=== PATIENT | male | born 1965 | race Two or more races ===

== ENCOUNTER 2021-03-12 10:15 | Outpatient (REF) | payer OTHER, SELFPAY ==
[2021-03-12 10:45] LABS: Binax Internal Control QC Valid; Binax Lot number: 9864; Binax Now Covid-19 Ag Positive (Negative)
== END 2021-03-12 10:16 | disposition home or self-care (01) ==
LOC: HO.LAB 10:15
PROVIDERS: Visit Provider Internal Medicine
DX: Z20.822 Contact with and (suspected) exposure to COVID-19 (principal)
CPT/HCPCS: C9803

== ENCOUNTER 2021-03-19 11:25 | Outpatient (REF) | payer OTHER, SELFPAY ==
[2021-03-19 11:47] LABS: Binax Internal Control QC Valid; Binax Now Covid-19 Ag Negative (Negative)
== END 2021-03-19 11:26 | disposition home or self-care (01) ==
LOC: HO.LAB 11:25
PROVIDERS: Visit Provider Internal Medicine
DX: Z20.822 Contact with and (suspected) exposure to COVID-19 (principal)
CPT/HCPCS: C9803